=== PATIENT | female | born 1980 | race Caucasian/White ===

== ENCOUNTER 2018-02-07 14:13 | Emergency (ER) | payer OTHER ==
[~2018-02-07] VITALS: Ht 165.1 cm; Wt 59.0 kg
[~2018-02-07 14:13] MED LIST: CIPRO500 MG PO; CLONAZEPAM; FLAGYL500 MG PO; HYDROCODONE-AP1 EAC6 PO; LEVOTHYROXIN0.025 M1 PG; LEVOTHYROXINE0.05 MG PO; NAPROSYN500 MG PO; PHENERGAN 25 MG25 M1 PO; ULTRAM 50MG TAB50 MG PO; ZOFRAN 4 MG ORAL4 M1 DIS
[2018-02-07 15:00] LABS: URINE BILIRUBIN NEGATIVE (Negative); URINE BLOOD TRACE (Negative); URINE CLARITY CLEAR; URINE COLOR YELLOW; URINE GLUCOSE-RANDOM NEGATIVE (Negative); URINE KETONES 2+ (Negative); URINE LEUKOCYTES-REFLEX NEGATIVE (Negative); URINE NITRITE-REFLEX NEGATIVE (Negative); URINE PROTEIN NEGATIVE (Negative); URINE SPECIFIC GRAVITY 1.025 (1.005-1.030); URINE UROBILINOGEN 0.2 E.U./dl (0.2-1.0)
[2018-02-07 15:18] LABS: ABSOLUTE EOSINOPHILS 0.1 thou/uL (0.0-0.7); ABSOLUTE LYMPHOCYTES 1.8 thou/uL (0.8-5.3); ABSOLUTE MONOCYTES 0.5 thou/uL (0.0-1.2); ABSOLUTE NEUTROPHILS 5.5 thou/uL (1.6-8.1); BASOPHILS 0.4 %; EOSINOPHILS 0.8 %; HEMATOCRIT 39.8 % (37.0-47.0); HEMOGLOBIN 13.5 gm/dL (12.0-15.0); LYMPHOCYTES 22.5 %; MCH 31.4 pg (26.0-34.0); MCHC 33.8 g/dL (28.0-37.0); MCV 92.8 fL (80.0-100.0); MONOCYTES 5.9 %; MPV 7.2 fl. (7.2-11.1); NUCLEATED RBCS 0 /100WBC; PLATELET COUNT* 333 thou/uL (150-400); POLYS 70.4 %; RBC 4.29 mil/uL (4.20-5.00); RDW-CV 12.9 % (10.5-14.5); WBC 7.8 thou/uL (4.0-11.0)
[2018-02-07 15:31] LABS: ALBUMIN 4.1 g/dL (3.4-5.0); CALCIUM 9.5 mg/dL (8.5-10.1); CREATININE 0.8 mg/dL (0.6-1.3); TOTAL BILIRUBIN 0.4 mg/dL (<0.1-1.0); TOTAL PROTEIN 7.7 g/dL (6.4-8.2)
[2018-02-07 17:07] VITALS: BP 109/70
--- NOTE | 2018-02-08 12:06 | EKG ---
[place] [address] ELECTROCARDIOGRAM REPORT Name: NATHANIEL DE JESUS Room: [facility] [id number] Admission: 02/07/18 Attend Phys: Discharge: 02/07/18 Date of : 78 Report #: [id number] THIS REPORT FOR: //name// [facility] ED Test Date: 2018-02-07 Test Time: 15:11:54 Pat Name: NATHANIEL DE JESUS Department: Room: Gender: F [employer]: MILLI : 1980 Requested By: Nathaniel Bryson Order Number: [id number] MD: Manjit Etienne Measurements Intervals [place] Rate: 67 P: 40 HI: 124 QRS: 46 QRSD: 91 T: 38 QT: 418 QTc: 442 Interpretive Statements Sinus rhythm Compared to ECG 10/15/2014 14:27:17 Short HI interval no longer present Electronically Signed On 02-08-2018 12:06:19 CDT by Manjit Etienne [email or web address] <ELECTRONICALLY SIGNED> By: Dafne Etienne MD, [facility] 02/08/18 1206 10 10 Dafne Etienne MD, [facility] /EPI
== END 2018-02-07 17:08 | disposition home or self-care (01) ==
LOC: M.ERS 14:13
PROVIDERS: Nurse Practitioner Family
DX: R53.83 Other fatigue (principal); R42 Dizziness and giddiness; E03.9 Hypothyroidism, unspecified; Z88.8 Allergy status to other drugs, medicaments and biological substances